=== PATIENT | female | born 2000 | race Caucasian/White ===

== ENCOUNTER 2023-02-27 09:14 | Emergency (ER) | payer MEDICAID ==
[~2023-02-27] VITALS: Ht 162.6 cm; Wt 59.1 kg
[2023-02-27 09:20] VITALS: BP 109/65; PULSE 93; RESP 18; TEMP 98.1; O2SAT 100
[2023-02-27 10:02] LABS: STREP A SCREEN NEGATIVE (Neg)
== END 2023-02-27 13:34 | disposition left against medical advice (07) ==
LOC: ER 09:15
DX: J02.9 Acute pharyngitis, unspecified (principal); Z53.21 Procedure and treatment not carried out due to patient leaving prior to being seen by health care provider
CPT/HCPCS: 87081; 87880; 99281

== ENCOUNTER 2024-08-05 16:43 | Emergency (ER) | payer MEDICAID ==
[~2024-08-05] VITALS: Ht 160 cm; Wt 59.8 kg
[2024-08-05 18:33] VITALS: BP 132/68; PULSE 76; RESP 16; TEMP 97.7; O2SAT 98
== END 2024-08-05 18:33 | disposition home or self-care (01) ==
LOC: ER 16:44
DX: R07.89 Other chest pain (principal)
CPT/HCPCS: 71046; 93005; 99283

== ENCOUNTER 2025-02-27 15:55 | Emergency (ER) | payer MEDICAID ==
[~2025-02-27] VITALS: Ht 160 cm; Wt 61.6 kg
[2025-02-27 16:07] VITALS: BP 121/82; PULSE 101; RESP 18; TEMP 99; O2SAT 98
[2025-02-27 17:01] LABS: MEAN PLATELET VOLUME 8.4 FL (7.4-10.4); RED CELL DISTRIBUTION WIDTH 12.9 % (11.5-14.5)
[2025-02-27 18:59] LABS: LEUKOCYTE ESTERASE ,URINE NEGATIVE (Neg); NITRITES, URINE NEGATIVE (Neg); OCCULT BLOOD,URINE MODERATE (Neg)
[2025-02-27 19:08] LABS: UA COLLECTION TYPE CLN CATCH MIDSTREAM
[2025-02-27 19:09] LABS: MUCUS STRANDS FEW /LPF (Neg); SQUAMOUS EPITHELIAL CELL,UR FEW /LPF (FEW)
--- NOTE | 2025-02-27 19:22 | Physician Documentation ---
History of Present Illness ~ Chief Complaint: Vaginal Bleeding Stated Complaint: COMPLICATIONS Time Seen by MD: 17:19 Primary Medical Doctor: NONE HPI 84-year-old female three para 0 presents to the emergency department because she began having some vaginal bleeding this morning that began with bright red blood and then has progressed to dark red blood. Reports he has took for [id number] tests in the last week and reports her last menstrual period was history weeks ago. She wonders if she may be having a miscarriage. Additionally mild complain of some abdominal cramping. No recent illness injuries or fever. Prior pregnancies were terminated with the abortions. Medication Reconciliation Allergies: Coded Allergies: No Known Allergies (Unverified , 02/27/23) Review of Systems All Other Systems at this time: Reviewed and Negative Female Genitalia: Reports: abnormal bleeding, Physical Exam Vital Signs: Temperature: 99.0, Source: Oral, Heart Rate: 101, Respiratory Rate: 18, BP: 121/82, Pulse Oximetry: 98, Weight: 61.600 General Appearance: alert, WD/WN, no apparent distress EENT: PERRL/EOMI Neck: normal inspection Cardiovascular: normal peripheral pulses Gastrointestinal: other (On suprapubic cramping) External Genitalia: other ( examined deferred) Extremities: normal range of motion Neurologic: oriented x4 Psychiatric: normal mood/affect Skin: normal color Progress Results/Orders Results/Orders Orders - JOSIANE BIRMINGHAM PAC Ultrasound Ob (02/27/25 ) Completed Orders - JOSIANE BIRMINGHAM PAC Cbc/Diff (02/27/25 16:21) Hcg Serum Qt (02/27/25 16:21) Ua With Microscopic (02/27/25 18:40) Vital Signs 02/27/25 16:07 Temp 99.0 Pulse 101 Resp 18 B/P (MAP) 121/82 Pulse Ox 98 Laboratory Tests Test 02/27/25 16:32 02/27/25 18:40 White Blood Count 8.1 Red Blood Count 4.44 Hemoglobin 12.8 Hematocrit 37.9 Mean Corpuscular Volume 85.3 Mean Corpuscular Hemoglobin 28.8 Mean Corpuscular Hemoglobin Concent 33.7 Red Cell Distribution Width 12.9 Platelet Count 247 Mean Platelet Volume 8.4 Neutrophils (%) (Auto) 61.3 Lymphocytes (%) (Auto) 27.3 Monocytes (%) (Auto) 8.1 Eosinophils (%) (Auto) 2.9 Basophils (%) (Auto) 0.4 Neutrophils # (Auto) 4.9 Lymphocytes # (Auto) 2.2 Monocytes # (Auto) 0.7 Eosinophils # (Auto) 0.2 Basophils # (Auto) 0.0 CBC Comment HCG Beta Subunit 4 Urine Specimen Description Cln catch midstream Urine Color Yellow Urine Clarity Clear Urine pH 6.0 Urine Specific [place] >=1.030 Urine Protein Negative Urine Glucose (UA) Negative Urine Ketones Negative Urine Occult Blood Moderate H Urine Nitrite Negative Urine Bilirubin Negative Urine Urobilinogen 0.2 Urine Leukocyte Esterase Negative Urine RBC 10-20 Urine WBC 0-4 Urine Squamous Epithelial Cells Few Urine Bacteria None seen Urine Mucus Few Volume Urine Centrifuged 10 ml Urine Comment Medical Decision Making Additional Comment 24-year-old female who is serum hCG quant is 4 likely representing either early your no . No clinical suspicion for ectopic . No indication to obtain ultrasound imaging today that would be beneficial. Recommendations are for patient to return in 48-72 hours for repeated serum hCG and/or return for continued and/or heavier vaginal bleeding. Patient is a of the labs are reassuring she was discharged safely from the emergency department with clear aftercare instructions. Departure Disposition: HOME / SELF CARE / HOMELESS Impression: Primary Impression: Vaginal bleeding Condition: Stable Discharge Instructions: Vaginal Bleeding During , [id number] Additional Instructions: Today in the emergency department your labs are reassuring that recommendations and return to the emergency department 48-72 hours for repeated serum hCG. Return in the interim for excessive vaginal bleeding. Thank you for visiting [facility]. Referrals: NO PRIMARY CARE PROVIDER (PCP) Education Educated: Patient Educated regarding: diagnosis, treatment Signature Scribe Signature: . Attestation: . JOSIANE BIRMINGHAM PAC Feb 27, 2025 19:22
== END 2025-02-27 20:37 | disposition home or self-care (01) ==
LOC: ER 15:55
DX: N93.9 Abnormal uterine and vaginal bleeding, unspecified (principal); R10.9 Unspecified abdominal pain
CPT/HCPCS: 36415; 81001; 84702; 85025; 99283